=== PATIENT | male | born 1955 | race Caucasian/White ===

== ENCOUNTER 2016-10-22 12:43 | Day surgery (SDC) | payer OTHER ==
[~2016-10-22] VITALS: Ht 180.3 cm; Wt 78.1 kg
[2016-10-22 13:29] VITALS: Ht 180.3 cm; Wt 78.1 kg
[2016-10-22 13:48] VITALS: BP 149/77; PULSE 89; RESP 20
[2016-10-22] MEDS ORDERED: LIDOCAINE 2% (SDV) 5 ML INJ ONE (14:05)
[2016-10-22] MEDS ORDERED: PROPOFOL 20 ML ONE ×2 (14:05)
[2016-10-22 14:53] VITALS: BP 141/65; PULSE 94; RESP 19
[2016-10-22 15:20] VITALS: BP 122/86; PULSE 76; RESP 20
--- NOTE | 2016-10-22 17:13 | GILP ---
DATE OF PROCEDURE: PROCEDURE: Colonoscopy with saline assisted polypectomy and colonoscopy with biopsies. PREMEDICATION: Monitored anesthesia care by anesthesiologist. SURGEON: Miya Peck MD INSTRUMENT USED: Olympus colonoscope. PREPARATION: Is adequate. TECHNIQUE: After informed consent, with the patient/relatives understanding the procedure, its indic ations potential risks and complications, including but not limited to: allergic reaction, bleeding, perforation, infection, missed lesions and after all pertinent questions were answered to the patie nt's satisfaction, the patient/relatives signed the witnessed informed consent. Following this, premedication was administered slowly IV push by under careful cardiovascular and re spiratory monitoring with pulse oximetry, automatic blood pressure and adobe developer. Once the sedativ e effect was achieved, the patient was placed in the left lateral decubitus position, digital rectal examination was performed. The colonoscope was then introduced and advanced under visual control th roughout all segments of the colon including: the rectum, sigmoid, descending colon, splenic flexure , transverse colon, hepatic flexure, ascending colon and finally reaching the cecum which was clearl y identified by transillumination, finger indentation and the ileocecal valve. Careful examination o f the mucosa of the lower gastrointestinal tract both on insertion as well as withdrawal of the inst rument disclosed the following findings: Rectal Examination: No evidence of perirectal disease, no masses. Colonic Mucosa: The colonic mucosa is remarkable for moderate diverticulosis in the sigmoid colon. There is a 6 mm sessile polyp in the proximal sigmoid colon. The polyp was removed with saline-ass isted polypectomy and retrieval upon completion of examination and withdrawal of the instrument. The remainder of the colon mucosa is unremarkable. The ileocecal valve was clearly identified. [place] ileum was entered and appears unremarkable. On withdrawal of the instrument, no additional ab normalities are noted. The polypectomy was performed as previously described. The area of the rect um shows significant erythema, and submucosal petechial changes. Biopsies were obtained to rule out proctitis versus the possibility of preparation artifact. PLAN: The patient will be continued on present regimen. Pathology will be reviewed as soon as avai lable. Annual Hemoccult stool testing is recommended. Surveillance colonoscopy in 5 years is recom mended. Dictated By: MIYA PECK MS/PHI Conf#: [id number] DID#: [id number]
== END 2016-10-22 16:23 | disposition home or self-care (01) ==
LOC: GIL 12:43
PROVIDERS: ATTEND Internal Medicine Gastroenterology
DX: Z12.11 Encounter for screening for malignant neoplasm of colon (principal); D12.5 Benign neoplasm of sigmoid colon; M19.90 Unspecified osteoarthritis, unspecified site; M81.0 Age-related osteoporosis without current pathological fracture; K57.30 Diverticulosis of large intestine without perforation or abscess without bleeding
CPT/HCPCS: 45390; 88305; Z7610